=== PATIENT | male | born 1995 | race African-American/Black ===

== ENCOUNTER 2017-12-20 19:04 | Emergency (ER) | payer OTHER ==
[~2017-12-20] VITALS: Ht 188 cm; Wt 81.6 kg
== END 2017-12-20 19:39 | disposition home or self-care (01) ==
LOC: ER 19:04
DX: T20.56XA Corrosion of first degree of forehead and cheek, initial encounter (principal); T22.131A Burn of first degree of right upper arm, initial encounter; T22.121A Burn of first degree of right elbow, initial encounter; T22.111A Burn of first degree of right forearm, initial encounter; T31.0 Burns involving less than 10% of body surface; X08.8XXA Exposure to other specified smoke, fire and flames, initial encounter; Y99.0 Civilian activity done for income or pay
CPT/HCPCS: 99283